=== PATIENT | male | born 1980 | race Caucasian/White ===

== ENCOUNTER 2016-10-21 03:01 | Emergency (ER) | payer SELFPAY ==
[2016-10-21] MEDS ORDERED: SODIUM CHLORIDE 0.9% 1,000 ML IV STA (03:09)
[2016-10-21 03:15] VITALS: BP 193/107; PULSE 120; RESP 18; TEMP 98.6
--- NOTE | 2016-10-21 03:22 | ED ---
General Adult HPI - General Stated complaint: Mental Health Time Seen by Provider: 10/21/16 03:03 Source: patient, EMS, RN notes reviewed Mode of arrival: EMS Limitations: no limitations - History of Present Illness Initial comments: this a 36-year-old male presents emergency Department chief complaint abdominal pain. Patient was brought to emergency department via EMS. Patient states that he's had ongoing abdominal pain since last February. Patient states that he recently took antibiotics for diverticulitis as prescribed by Lucius Orr. Patient states that he has had some nausea vomiting. He states pain seems to move but is greatest in the mid abdomen. Patient denies any dysuria hematuria no diarrhea constipation. Report from EMS was that family called EMS because he seemed to be hallucinating. Patient's reportedly was leaving water around stating was holy water. Patient did admit to smoking marijuana.patient denies being in suicidal or homicidal denies alcohol use - Related Data Home Medications Medication Instructions Recorded Confirmed No Known Home Medications [No 10/21/16 10/21/16 Known Home Medications] Allergies Allergy/AdvReac Type Severity Reaction Status Date / Time sulfamethoxazole Allergy Unknown Verified 10/21/16 03:17 [From Bactrim] trimethoprim [From Bactrim] Allergy Unknown Verified 10/21/16 03:17 Review of Systems ROS Statement: Those systems with pertinent positive or pertinent negative responses have been documented in the HPI. ROS Other: All systems not noted in ROS Statement are negative. Past Medical History Past Medical History: No Reported History History of Any Multi-Drug Resistant Organisms: None Reported Past Surgical History: No Surgical Hx Reported Past Psychological History: No Psychological Hx Reported Smoking Status: Current every day smoker Past Alcohol Use History: None Reported Past Drug Use History: Marijuana General Exam Limitations: no limitations General appearance: alert, in no apparent distress, obese Respiratory exam: Present: normal lung sounds bilaterally. Absent: respiratory distress, wheezes, rales, rhonchi, stridor Cardiovascular Exam: Present: normal rhythm, tachycardia, normal heart sounds. Absent: systolic murmur, diastolic murmur, rubs, gallop, clicks GI/Abdominal exam: Present: soft, tenderness (moderate diffuse abdominal tenderness), normal bowel sounds. Absent: distended, guarding, rebound, rigid Neurological exam: Present: alert, oriented X3, CN II-XII intact Skin exam: Present: warm, dry, intact, normal color. Absent: rash Course Vital Signs 10/21/16 03:04 Temperature 98.6 F Pulse Rate 120 H Respiratory 18 Rate Blood Pressure 193/107 O2 Sat by Pulse 99 Oximetry - Reevaluation(s) Reevaluation #1: 10/21/16 03:30 patient was refusing all medical care at this time. Patient is not wanting lab work or anything done. He states that he just needs to drink some water. Patient is awake alert and oriented 3. Patient is not suicidal or homicidal. Medical Decision Making - Medical Decision Making patient is requesting to be discharged he does not want any lab work patient did smoke marijuana earlier today and most likely lead to his symptoms at home. Patient is having normal behavior here is awake alert and oriented 3. Patient will be discharged AMA Disposition Clinical Impression: Abdominal pain Disposition: Left Against Medical Advice Condition: Stable Instructions: Abdominal Pain (ED) Referrals: None,Stated [Primary Care Provider] - 1-2 days
[2016-10-21 03:32] LABS: Appearance,Urine Clear (Clear); Bilirubin,Urine Negative (Negative); Glucose,Urine (UA) Negative (Negative); Ketones,Urine 2+ (Negative); Leukocyte Esterase,Urine Negative (Negative); Nitrite,Urine Negative (Negative); Protein,Urine Negative (Negative); Specific Gravity,Urine 1.007 (1.001-1.035); UA Billing (MACRO vs. MICRO) CHEM; Urobilinogen,Urine <2.0 mg/dL (<2.0)
== END 2016-10-21 03:38 | disposition left against medical advice (07) ==
LOC: EC 03:01
DX: R10.9 Unspecified abdominal pain (principal); R11.2 Nausea with vomiting, unspecified; R44.3 Hallucinations, unspecified; R00.0 Tachycardia, unspecified; F17.200 Nicotine dependence, unspecified, uncomplicated; Z88.1 Allergy status to other antibiotic agents
CPT/HCPCS: 80306; 81003; 82075; 99284